=== PATIENT | male | born 1990 | race American Indian/Alaskan Native ===

== ENCOUNTER 2018-11-13 13:22 | Emergency (ER) | payer SELFPAY ==
[2018-11-13] MEDS ORDERED: BOOSTRIX IM ONE ×2 (13:32→16:52)
--- NOTE | 2018-11-13 13:32 | Emergency Department Report ---
Chief Complaint: Wound/Laceration Stated Complaint: HAND INJURY Time Seen by Provider: 11/13/18 13:28 - HPI History of Present Illness: This is a 28 y.o. M. that presents to the ER with laceration and pain to left hand. Patient states he was leaning on balcony attached to room at home when he fell. Patient states it feel like something is stuck in hand or broken. Tetanus not UTD. MSE screening note: Focused history and physical exam performed. Due to findings the following was ordered: This initial assessment/diagnostic orders/clinical plan/treatment(s) is/are subject to change based on patient's health status, clinical progression and re- assessment by fellow clinical providers in the ED. Further treatment and workup at subsequent clinical providers discretion. Patient/guardians urged not to elope from the ED as their condition may be serious if not clinically assessed and managed. Initial orders include: XR left hand. Tetanus vaccine. ACC for further evaluation. ED Disposition for MSE Condition: Stable
--- NOTE | 2018-11-13 13:50 | XRay Report ---
LEFT HAND, 3 views: History: Rule out foreign body. The bony architecture is intact. Bony alignment is normal. The joint spaces appear to preserved. Soft tissue laceration between digits 2 and 3 as noted. No radiopaque foreign body is detected on x-ray. IMPRESSION: Soft tissue laceration.
[2018-11-13] MEDS ORDERED: NORCO 5/325 PO ONE (16:40)
--- NOTE | 2018-11-13 16:40 | Emergency Department Report ---
ED Laceration HPI - HPI Chief Complaint: Wound/Laceration Stated Complaint: HAND INJURY Time Seen by Provider: 11/13/18 13:28 Location: Upper Extremity Severity: moderate Tetanus Status: Not up to Date Laceration Symptoms: Yes Pain, No Foreign Body Sensation, No Numbness, No Weakness Other History: Patient is a 28-year-old male presents today complaining of laceration to the left palm. Patient states that he fell off a porch earlier today while he was on the porch. Patient said he tried to catch his fall and landed on his hand. Patient states he is unsure of what caused the laceration and possibly a tree or nail. He admits some minor abrasions otherwise no loss of consciousness no other injuries ED Review of Systems ROS: Stated complaint: HAND INJURY Other details as noted in HPI Comment: All other systems reviewed and negative ED Past Medical Hx - Past Medical History Previous Medical History?: No - Surgical History Past Surgical History?: No - Social History Smoking Status: Never Smoker Substance Use Type: None - Medications Home Medications: Home Medications Medication Instructions Recorded Confirmed Last Taken Type Ibuprofen [Motrin] 800 mg PO Q8HR #30 tablet 11/13/18 Unknown Rx cephALEXin [Keflex] 500 mg PO Q12HR #10 cap 11/13/18 Unknown Rx Laceration Physical Exam - Exam General: Vital signs noted. No distress. Alert and acting appropriately. Laceration Location: Upper Extremity (hand) Laceration Exam: No Foreign Body, No Exposed Tendon, Vessel, or Nerve, No Tendon Injury, No Normal Distal CMS - Laceration /Wound Repair Left Hand Wound Location: upper extremity (left palm) Wound Length (cm): 3 Wound's Depth, Shape: superficial, linear Wound Explored: clean Irrigated w/ Saline (ccs): 200 Betadine Prep?: Yes Anesthesia: 1% Lidocaine Volume Anesthetic (ccs): 2 Wound Repaired With: sutures Suture Size/Type: 4:0, 3:0, proline Number of Sutures: 12 Layer Closure?: No ED Medical Decision Making - Radiology Data Radiology results: report reviewed, image reviewed Fluoro Time In Minutes: LEFT HAND, 3 views: History: Rule out foreign body. The bony architecture is intact. Bony alignment is normal. The joint spaces appear to preserved. Soft tissue laceration between digits 2 and 3 as noted. No radiopaque foreign body is detected on x-ray. IMPRESSION: Soft tissue laceration. Transcribed By: TTR Dictated By: JAE JIMENES JR, MD Electronically Authenticated By: JAE JIMENES JR, MD Signed Date/Time: 11/13/18 5479 - Medical Decision Making 28-year-old male presents with hand laceration X-ray shows no acute fractures or dislocation. Patient is speaking in clear sentences and is in no acute distress. The laceration was completed without problems. Discussed the patient to return to ED or primary care for suture removal. Discussed the patient to follow up with her primary care physician. Critical care attestation.: If time is entered above; I have spent that time in minutes in the direct care of this critically ill patient, excluding procedure time. ED Disposition Clinical Impression: Laceration of hand Disposition: DC- TO HOME OR SELFCARE Is pt being admited?: No Does the pt Need Aspirin: No Condition: Stable Instructions: Suture Care (ED), Laceration (ED), Abrasion (ED) Additional Instructions: Make sure to follow up with the primary care physician as discussed. Take all your medications as you've been prescribed. If you have any worsening symptoms or develop new symptoms please return to ED immediately. Prescriptions: cephALEXin [Keflex] 500 mg PO Q12HR #10 cap Ibuprofen [Motrin] 800 mg PO Q8HR #30 tablet Referrals: DUY MCCULLOUGH MD [Primary Care Provider] - 3-5 Days [facility] [Provider Group] - 3-5 Days Forms: Accompanied Note, Work/School Release Form(ED) Time of Disposition: 17:35
[2018-11-13] MEDS ORDERED: XYLOCAINE 2% INFILTRATI ONE ×2 (17:39→17:41)
[2018-11-13 18:31] VITALS: BP 136/95
== END 2018-11-13 18:31 | disposition home or self-care (01) ==
LOC: ED 13:22
DX: S61.412A Laceration without foreign body of left hand, initial encounter (principal); W18.30XA Fall on same level, unspecified, initial encounter; Y93.89 Activity, other specified; Y92.89 Other specified places as the place of occurrence of the external cause; Y99.8 Other external cause status
CPT/HCPCS: 90471; 90715